=== PATIENT | female | born 1975 | race African-American/Black ===

== ENCOUNTER 2018-12-04 03:14 | Emergency (ER) | payer BC, OTHER ==
[2018-12-04] MEDS ORDERED: Oxymetazoline HCl 0.05% (30 ML BOT) NS SCH (03:45)
== END 2018-12-04 03:58 | disposition home or self-care (01) ==
LOC: ERS 03:14
DX: J06.9 Acute upper respiratory infection, unspecified (principal); R09.81 Nasal congestion
CPT/HCPCS: 99283

== ENCOUNTER 2021-11-09 06:54 | Emergency (ER) | payer BC | END 2021-11-09 08:52 | disposition home or self-care (01) | LOC: ERS 06:54 | DX: E11.9 Type 2 diabetes mellitus without complications (principal) | CPT/HCPCS: 36416; 99284 ==